=== PATIENT | female | born 1980 | race Caucasian/White ===

== ENCOUNTER 2016-07-27 08:45 | Day surgery (SDC) | payer OTHER ==
[~2016-07-27 08:45] MED LIST: CEFAZOLIN 1 GM/D5W RTU 1 GM/50 ML RTUPB IV PRN
[2016-07-27] MEDS ORDERED: MIDAZOLAM 2 MG/2 ML INJ ONE (09:55)
[2016-07-27] MEDS ORDERED: FENTANYL CITRATE INJ/PF 100 MCG/2 ML AMPUL ONE (09:55)
[2016-07-27] MEDS ORDERED: PROPOFOL INJ 200 MG/20 ML VIAL IV ONE (09:56)
[2016-07-27] MEDS ORDERED: NORMAL SALINE INJ/PF 0.9% 10 ML SDV ONE (10:03)
[2016-07-27] MEDS ORDERED: BACITRACIN INJ 50,000 UNIT VIAL ONE (10:03)
[2016-07-27] MEDS ORDERED: POLYMYXIN B SULFATE INJ 500000 UNIT VIAL ONE (10:03)
[2016-07-27] MEDS ORDERED: BUPIVACAINE HCL 0.5 % INJ/PF 30 ML SDV ONE (10:03)
[2016-07-27] MEDS ORDERED: LIDOCAINE 2% INJ (20 MG/ML) 20 ML MDV ONE (10:03)
--- NOTE | 2016-07-27 11:33 | SURGICARE OPERATIVE REPORT E ---
[facility], [place] Operative Report NAME: CARLOS A KATZ AGE: 36Y DATE OF SURGERY: 07/27/2016 ROOM: PREOPERATIVE DIAGNOSIS: Soft tissue mass of the plantar aspect of the right foot. POSTOPERATIVE DIAGNOSIS: Soft tissue mass of the plantar aspect of the right foot. PROCEDURE: Excision of soft tissue mass of the plantar right foot. OPERATING SURGEON: DYLAN BREWSTER DPM ESCORT BLIND: Suzette Aquino DPM PROCEDURE: On 07/27/2016 the patient was admitted to [facility], [place] with complaints of a painful right foot. She was taken to the operating room. Following the induction of sedation and regional local anesthesia, the patient's right foot and leg were prepped and draped in the usual sterile manner. A tourniquet was placed at the proximal ankle malleoli, Esmarch was applied, and the tourniquet was inflated to a level of 250 mmHg. The Esmarch was removed. Sterile draping was completed and the following procedure was performed. Attention was directed to the plantar medial aspect of the patient's left medial arch where an approximately 1.5-cm soft tissue mass was palpated. An incision was made in the medial aspect of the arch in a vertical orientation following the relaxed skin lines. That was deepened to the subcutaneous tissue and superficial fascia. All bleeding vessels were clamped, ligated and Bovied as necessary for hemostasis. The incision was further deepened via sharp and blunt dissection. This was carried through the soft tissue mass as it appeared to be tightly adhered to the skin margins. It was sharply dissected from the underlying dermis and removed from the wound en toto. It was felt that removal of the remaining skin margins was needed so approximately a 2-mm wedge of skin margin full thickness was removed from the adjacent sides of the incision. All specimens were also sent to pathology. The area was flushed with copious amounts of sterile antibiotic solution and inspected for any debris with none found. The site was inspected. There was only normal-appearing fat tissue and subcutaneous tissue remaining. It was felt that the entire lesion had been removed at this point. Following further flushing with sterile antibiotic solution, the wound was then closed with simple suture of 4-0 Vicryl in subcutaneous tissue. The skin incisions were then coapted and maintained with interrupted horizontal mattress sutures of 4-0 nylon. Sterile dressing consisting of Anmol silk, 4 x 4, Malvin, Kerlix and Coflex was applied to the patient's right foot. The tourniquet was rapidly deflated. Capillary refill time was instantaneous in all digits. The patient appeared to tolerate the surgery and anesthesia well and was taken to the recovery room with further monitoring by the anesthesia department. DICTATING PHYSICIAN: DYLAN BREWSTER DPM [id number] PHY#: [id number] ID: [id number] JOB#: [id number] ACCT: [id number] cc:DYLAN BREWSTER DPM > MTDD
== END 2016-07-27 11:53 | disposition home or self-care (01) ==
LOC: SC 08:45
PROVIDERS: ATTEND Preventive Medicine Undersea and Hyperbaric Medicine
PROC: 0JBQ0ZZ Excision of Right Foot Subcutaneous Tissue and Fascia, Open Approach (ICD-10-PCS; principal; 2016-07-27 09:45)
DX: M72.2 Plantar fascial fibromatosis (principal); J45.990 Exercise induced bronchospasm; Z79.51 Long term (current) use of inhaled steroids; Z79.899 Other long term (current) drug therapy
CPT/HCPCS: 88304 ×2; 28062; J2250; J3490 ×4; J0690; J3010; J2704; 1470